=== PATIENT | female | born 1995 | race Hispanic/Latino ===

== ENCOUNTER → 2021-05-10 | Outpatient (CLI) | payer MEDICAID ==
[~2021-05-10] VITALS: Ht 12.7 cm; Wt 135.4 kg
== END | disposition home or self-care (01) ==
LOC: DTH 12:22
PROVIDERS: ATTEND Surgery
DX: E66.01 Morbid (severe) obesity due to excess calories (principal); K21.9 Gastro-esophageal reflux disease without esophagitis; E11.9 Type 2 diabetes mellitus without complications
CPT/HCPCS: 97802

== ENCOUNTER → 2021-06-01 | Outpatient (CLI) | payer OTHER | END | disposition home or self-care (01) | LOC: DTH 15:29 | PROVIDERS: ATTEND Surgery | DX: E66.01 Morbid (severe) obesity due to excess calories (principal); K21.9 Gastro-esophageal reflux disease without esophagitis; E11.9 Type 2 diabetes mellitus without complications | CPT/HCPCS: 97803 ==

== ENCOUNTER 2023-08-05 08:50 | Inpatient (IN) | payer MEDICAID ==
[~2023-08-05] VITALS: Ht 165.1 cm; Wt 89.4 kg
[2023-08-05 09:28] LABS: BASOPHILS # (AUTO) 0.04 K/uL (0.00-0.20); BASOPHILS % (AUTO) 0.4 % (0.0-5.0); EOSINOPHILS # (AUTO) 0.17 K/uL (0.00-0.70); EOSINOPHILS % (AUTO) 1.5 % (0.0-8.0); HEMATOCRIT 31.2 % (36-48); IMMATURE GRANULOCYTE ABSOLUTE 0.04 K/uL (0-1); LYMPHOCYTES # (AUTO) 1.6 K/uL (1.0-4.8); LYMPHOCYTES % (AUTO) 14.1 % (21.0-51.0); MEAN CORPUSCULAR HEMOGLOBIN 21.8 pg (27.0-33.0); MEAN CORPUSCULAR HGB CONC 29.8 g/dL (32.0-36.0); MEAN CORPUSCULAR VOLUME 73.2 fL (79-99); MONOCYTES # (AUTO) 0.9 K/uL (0.1-1.0); MONOCYTES % (AUTO) 8.3 % (3.0-13.0); NEUTROPHILS # (AUTO) 8.3 K/uL (1.8-7.7); NEUTROPHILS % (AUTO) 75.3 % (40.0-77.0); PLATELET COUNT (AUTO) 444 K/uL (130-400); RED BLOOD CELL COUNT(AUTO) 4.26 MIL/uL (4.00-5.50); RED CELL DISTRIBUTION WIDTH 21.2 % (11.0-15.5)
[2023-08-05 09:38] LABS: CREATININE 0.6 mg/dL (0.5-1.5); POTASSIUM 3.3 mmol/L (3.5-5.1)
[2023-08-05 09:43] LABS: ALBUMIN 3.7 g/dL (3.5-5.0); BILIRUBIN,TOTAL 0.5 mg/dL (0.2-1.0); TOTAL PROTEIN, SERUM 7.6 g/dL (6.0-8.3)
[2023-08-05 09:45] LABS: APPEARANCE,URINE CLOUDY (CLEAR); BILIRUBIN,URINE NEGATIVE (NEGATIVE); COLOR,URINE YELLOW (YELLOW); GLUCOSE, URINE (UA) NEGATIVE (NEGATIVE); KETONES,URINE NEGATIVE (NEGATIVE); LEUKOCYTE ESTERASE ,URINE 75 Leu/uL (NEGATIVE); NITRATE,URINE NEGATIVE (NEGATIVE); OCCULT BLOOD,URINE NEGATIVE (NEGATIVE); PROTEIN,URINE 20 mg/dL (NEGATIVE)
[2023-08-05 10:04] LABS: HCG,QUALITATIVE URINE NEGATIVE (NEGATIVE)
[2023-08-05 10:12] LABS: ADD UA MICROSCOPIC YES
[2023-08-05 10:38] LABS: MUCUS,URINE FEW LPF (None Seen); SQUAMOUS EPITHELIAL CELL,UR MOD /HPF (0-2)
[2023-08-05] MEDS ORDERED: MORPHINE 4 MG SYG IVP ONE (11:00)
[2023-08-05] MEDS ORDERED: FAMOTIDINE 20MG VIAL IV ONE (11:00)
[2023-08-05] MEDS ORDERED: METOCLOPRAMIDE 10 MG/2 ML VIAL IVP ONE (11:00)
[2023-08-05] MEDS ORDERED: LACTATED RINGERS 1000ML 1,000 ML IV ONE (11:00)
[2023-08-05] MEDS ORDERED: CEFTRIAXONE 2GM VIAL IVPB ONE (12:00)
[2023-08-05] MEDS ORDERED: 0.9%NACL 1000ML 1,000 ML IV ONE (12:00)
[2023-08-05] MEDS ORDERED: IOHEXOL-350 75 ML VIAL IV ONE (12:34)
[2023-08-05] MEDS ORDERED: ONDANSETRON 4MG INJ IV PRN (15:30)
[2023-08-05] MEDS: 0.9%NACL 1000ML 1,000 ML IV SCH (15:51)
[2023-08-05 17:03] LABS: % IRON SATURATION 4.2 % (22-44)
[2023-08-05 18:40] VITALS: BP 110/58; PULSE 77; RESP 16
[2023-08-05 19:59] VITALS: BP 121/68; PULSE 84; RESP 16
[2023-08-05 20:50] VITALS: O2SAT 100
[2023-08-05] MEDS: ZOSYN 3.375GM+NS 50ML 50 ML IVPB SCH (20:50)
[2023-08-05] MEDS: MORPHINE 2 MG SYG IVP PRN (22:55)
[2023-08-05] MEDS ORDERED: ACETAMINOPHEN 325 MG TAB PO PRN (23:00)
[2023-08-05 23:42] VITALS: BP 110/66; PULSE 88; RESP 17
[2023-08-06] MEDS: 0.9%NACL 1000ML 1,000 ML IV SCH ×3 (00:54→12:20)
[2023-08-06] MEDS: MORPHINE 2 MG SYG IVP PRN (02:58)
[2023-08-06] MEDS: ZOSYN 3.375GM+NS 50ML 50 ML IVPB SCH ×2 (04:07→12:47)
[2023-08-06 04:27] VITALS: BP 96/52; PULSE 92; RESP 18
[2023-08-06 07:52] LABS: BASOPHILS # (AUTO) 0.05 K/uL (0.00-0.20); BASOPHILS % (AUTO) 0.5 % (0.0-5.0); EOSINOPHILS # (AUTO) 0.14 K/uL (0.00-0.70); EOSINOPHILS % (AUTO) 1.3 % (0.0-8.0); IMMATURE GRANULOCYTE ABSOLUTE 0.04 K/uL (0-1); LYMPHOCYTES # (AUTO) 2.2 K/uL (1.0-4.8); LYMPHOCYTES % (AUTO) 19.5 % (21.0-51.0); MEAN CORPUSCULAR HEMOGLOBIN 21.7 pg (27.0-33.0); MEAN CORPUSCULAR VOLUME 72.2 fL (79-99); MONOCYTES % (AUTO) 9.3 % (3.0-13.0); NEUTROPHILS # (AUTO) 7.6 K/uL (1.8-7.7); PLATELET COUNT (AUTO) 382 K/uL (130-400); RED CELL DISTRIBUTION WIDTH 21.1 % (11.0-15.5)
[2023-08-06 08:00] VITALS: BP 97/61; PULSE 82; RESP 18; O2SAT 99
[2023-08-06 08:03] LABS: CREATININE 0.5 mg/dL (0.5-1.5); POTASSIUM 3.5 mmol/L (3.5-5.1)
[2023-08-06 08:08] LABS: ALBUMIN 2.7 g/dL (3.5-5.0); BILIRUBIN,TOTAL 0.4 mg/dL (0.2-1.0); TOTAL PROTEIN, SERUM 6.2 g/dL (6.0-8.3)
[2023-08-06 12:07] VITALS: BP 100/52; PULSE 75; RESP 19
[2023-08-06] MEDS ORDERED: AMOX1TAB16 PO (16:39)
[2023-08-06 17:18] VITALS: BP 100/52; PULSE 80; RESP 18
== END 2023-08-06 18:35 | disposition home or self-care (01) ==
LOC: EDH 08:50 → EDHIP 08:51 → 3CH 18:13
PROVIDERS: ADMIT Internal Medicine; ATTEND Internal Medicine
DX: K81.0 Acute cholecystitis (principal); K65.9 Peritonitis, unspecified; L03.311 Cellulitis of abdominal wall; E86.0 Dehydration; N39.0 Urinary tract infection, site not specified; D64.9 Anemia, unspecified; E87.6 Hypokalemia; K82.8 Other specified diseases of gallbladder; E66.01 Morbid (severe) obesity due to excess calories; Z98.84 Bariatric surgery status; Z68.32 Body mass index [BMI] 32.0-32.9, adult
CPT/HCPCS: 36415; 74178; 80053; 81001; 81025; 82728; 83540; 83550; 83605; 83615; 84145; 85025; 85651; 86140; 87040; 87088; G0378; J0696; J2270; J2543; J2765; J3490; J7120; Q9967